=== PATIENT | female | born 1955 | race Caucasian/White ===

== ENCOUNTER 2022-07-06 07:30 | Observation (INO) ==
[2022-07-18] MEDS ORDERED: Lactated Ringers 1000 ml BAG 1,000 ML IV SCH ×3 (06:00→14:15)
[2022-07-18] MEDS ORDERED: Buffered Lidocaine 1% SYRIN 1 ml INTRADERM ONE (06:00)
[2022-07-18] MEDS ORDERED: ceFAZolin 2 GM PREMIX 2 GM/50 ML BAG ONE (07:03)
[2022-07-18] MEDS ORDERED: Ropivacaine 5 MG/ML 20 ML VIAL 0.5% (100 MG) ONE (07:10)
[2022-07-18] MEDS ORDERED: Propofol 10 MG/ML 20 ML BTL ONE ×2 (07:22→07:29)
[2022-07-18] MEDS ORDERED: Lidocaine 2% PF 5 ML VIAL ONE (07:26)
[2022-07-18] MEDS ORDERED: ROPIVACAINE 5 MG/ML 30 ML BTL (0.5%) ONE (08:40)
[2022-07-18] MEDS ORDERED: Midazolam 2 mg/2 ml VIAL 1 mg/ml 2 ml VIAL (2 mg) ONE ×2 (08:41→09:06)
[2022-07-18] MEDS ORDERED: fentaNYL 100 mcg/2 ml 50 MCG/ML VIAL ONE (08:41)
[2022-07-18] MEDS ORDERED: Acetaminophen IV 1 GM/100ML 1,000 MG/100 ML BAG IV ONE (09:37)
[2022-07-18] MEDS ORDERED: Phenylephrine 40 mcg/mL 10mL (400mcg) SYRINGE ONE ×2 (09:40→10:36)
[2022-07-18] MEDS ORDERED: Ondansetron 4 mg VIAL 2 MG/ML 2 ml VIAL ONE (10:26)
[2022-07-18] MEDS ORDERED: fentaNYL 100 mcg/2 ml 50 MCG/ML VIAL IV PRN (10:53)
[2022-07-18] MEDS ORDERED: Naloxone 0.4 mg VIAL 0.4 mg/ml 1 ml VIAL IV PRN (10:53)
[2022-07-18] MEDS ORDERED: Ondansetron 4 mg VIAL 2 MG/ML 2 ml VIAL IV PRN ×2 (10:53→11:33)
[2022-07-18] MEDS ORDERED: Prochlorperazine 5 mg/ml 2 ml VIAL (10 mg) IV PRN (10:53)
[2022-07-18] MEDS ORDERED: HYDROmorphone 0.5 MG/0.5 ML SYRINGE ONE (11:25)
[2022-07-18] MEDS ORDERED: Lactulose 30 ml UDC PO PRN (11:33)
[2022-07-18] MEDS ORDERED: Ondansetron ODT 4 mg TAB 4 MG TAB PO PRN (11:33)
[2022-07-18] MEDS ORDERED: Morphine 2 MG/ML SYRINGE IV PRN (11:33)
[2022-07-18] MEDS ORDERED: Magnesium Hydroxide LIQ 30 ML UDC PO PRN (11:33)
[2022-07-18] MEDS: ceFAZolin 1 GM ADVAN 1 GM in NS 0.9% 50 ML 50 ML IVPB SCH ×2 (13:54→17:13)
[2022-07-18] MEDS: Magnesium Hydroxide LIQ 30 ML UDC PO SCH (20:29)
[2022-07-18] MEDS: Lactated Ringers 1000 ml BAG 1,000 ML IV SCH (22:21)
[2022-07-19] MEDS: ceFAZolin 1 GM ADVAN 1 GM in NS 0.9% 50 ML 50 ML IVPB SCH ×2 (01:11→08:12)
[2022-07-19] MEDS: Lactated Ringers 1000 ml BAG 1,000 ML IV SCH (05:56)
[2022-07-19 07:01] LABS: Hematocrit 30 % (35-47); Hemoglobin 10.2 g/dL (12.0-16.0); Mean Platelet Volume 8.1 fL (7.4-10.4); Platelet Count 203 10^3/uL (150-450)
[2022-07-19 07:15] LABS: Potassium 4.2 mmol/L (3.5-5.0); eGFR CKD-EPI 95.3 (>60)
[2022-07-19] MEDS: Magnesium Hydroxide LIQ 30 ML UDC PO SCH (08:09)
[2022-07-19] MEDS ORDERED: Pneumococcal Vac 23-Polyvalent IM ONE (09:00)
[2022-07-19] MEDS ORDERED: [UNRECOGNIZED DRUG - OTHER] PO SCH (09:00)
[2022-07-19] MEDS ORDERED: Vitamin THERAPEUTIC TAB PO SCH (09:00)
[2022-07-19 11:04] VITALS: BP 89/56
== END 2022-07-19 12:45 | disposition home or self-care (01) ==
LOC: INTOOBSV 07-18 06:49 → AA 07-18 06:49 → SSU 07-18 11:33
PROVIDERS: ADMIT Orthopaedic Surgery Adult Reconstructive Orthopaedic Surgery; ATTEND Orthopaedic Surgery Adult Reconstructive Orthopaedic Surgery

== ENCOUNTER 2024-07-29 08:12 | Observation (INO) ==
[~2024-07-29 08:12] MED LIST: Metoclopramide 5 MG/ML VIAL (10 mg) IV PRN; NS 0.45% 1000 ml BAG 1,000 ML IV SCH; Naloxone 0.4 mg VIAL 0.4 mg/ml 1 ml VIAL IV PRN; Ondansetron 4 mg VIAL 2 MG/ML 2 ml VIAL IV PRN
[2024-07-29] MEDS ORDERED: ceFAZolin 2 GM PREMIX 2 GM/50 ML BAG ONE (08:32)
[2024-07-29] MEDS ORDERED: Tranexamic Acid 1 GM/100ML BAG 2,000 MG/200 ML BAG IV ONE (08:32)
[2024-07-29 08:48] LABS: Rapid COVID-19 Molecular Undetected (Undetected)
[2024-07-29] MEDS: Buffered Lidocaine 1% SYRIN 1 ml INTRADERM ONE (08:53)
[2024-07-29] MEDS: Lactated Ringers 1000 ml BAG 1,000 ML IV SCH ×2 (08:53→15:48)
[2024-07-29] MEDS: Scopolamine 1 mg/72hr PATCH TRANSDERM ONE (08:53)
[2024-07-29] MEDS ORDERED: Midazolam 2 mg/2 ml VIAL 1 mg/ml 2 ml VIAL (2 mg) ONE ×3 (09:41→10:57)
[2024-07-29] MEDS ORDERED: ROPIVACAINE 5 MG/ML 30 ML BTL (0.5%) ONE ×2 (09:41→10:33)
[2024-07-29] MEDS ORDERED: Ondansetron 4 mg VIAL 2 MG/ML 2 ml VIAL ONE (09:59)
[2024-07-29] MEDS ORDERED: Dexamethasone IV 4 MG/ML VIAL 1 ml VIAL ONE (09:59)
[2024-07-29] MEDS ORDERED: Lidocaine 2% PF 5 ML VIAL ONE (09:59)
[2024-07-29] MEDS ORDERED: Propofol 10 MG/ML 20 ML BTL ONE ×3 (09:59→13:10)
[2024-07-29] MEDS ORDERED: Glycopyrrolate IV 0.2 MG/ML 1 ML VIAL ONE ×2 (11:33→11:41)
[2024-07-29] MEDS ORDERED: Sodium Chloride 0.9% 10 ML ONE (11:42)
[2024-07-29] MEDS ORDERED: fentaNYL 100 mcg/2 ml 50 MCG/ML VIAL ONE ×2 (12:40→13:37)
[2024-07-29] MEDS ORDERED: Ondansetron 4 mg VIAL 2 MG/ML 2 ml VIAL IV PRN (13:33)
[2024-07-29] MEDS ORDERED: Calcium Carb (TUMS) 500 mg CHEW TAB PO PRN (13:33)
[2024-07-29] MEDS ORDERED: Morphine 2 MG/ML SYRINGE IV PRN (13:33)
[2024-07-29] MEDS ORDERED: Ondansetron ODT 4 mg TAB 4 MG TAB PO PRN (13:33)
[2024-07-29] MEDS ORDERED: Magnesium Hydroxide LIQ 30 ML UDC PO PRN (13:33)
[2024-07-29] MEDS ORDERED: Lactulose 30 ml UDC PO PRN (13:33)
[2024-07-29] MEDS: fentaNYL 100 mcg/2 ml 50 MCG/ML VIAL IV PRN (13:42)
[2024-07-29] MEDS: Acetaminophen IV 1 GM/100ML 1,000 MG/100 ML BAG IV ONE (14:55)
[2024-07-29] MEDS: ceFAZolin 2 GM PREMIX 2 GM/50 ML BAG IV SCH ×2 (16:45→19:54)
[2024-07-29] MEDS: Magnesium Hydroxide LIQ 30 ML UDC PO SCH (19:54)
[2024-07-30 07:01] LABS: Hematocrit 30.1 % (35-45); Hemoglobin 10.5 g/dL (11.5-14.3); Mean Platelet Volume 8.8 fL (7.5-11.2); Platelet Count 212 10^3/uL (150-450)
[2024-07-30 07:12] LABS: Calcium 8.4 mg/dL (8.6-10.3); Creatinine, Serum 0.78 mg/dL (0.51-0.95); Potassium 4.3 mmol/L (3.5-5.0); eGFR CKD-EPI 82.7 (>60)
[2024-07-30] MEDS: Lactated Ringers 1000 ml BAG 500 ML IV ONE (10:30)
[2024-07-30] MEDS: Vitamin THERAPEUTIC TAB PO SCH (11:16)
[2024-07-30 11:19] VITALS: BP 95/60
== END 2024-07-30 13:45 | disposition home or self-care (01) ==
LOC: SSU 08:12 → OR 08:12
PROVIDERS: ADMIT Orthopaedic Surgery Adult Reconstructive Orthopaedic Surgery; ATTEND Orthopaedic Surgery Adult Reconstructive Orthopaedic Surgery